=== PATIENT | female | born 1935 | race Caucasian/White ===

== ENCOUNTER 2016-06-14 04:31 | Emergency (ER) | payer MEDICARE, OTHER ==
[~2016-06-14 04:31] MED LIST: ASA5GR PO; COREG3 PO; COZ25 PO; GOODY'S EX-STR1 EAC1 PO; HARD NAILS PO; HCTZ25B PO; HYDROCHLOROT25 MG PO; IBU800 PO; LEVAQUIN750 MG PO; LEVOTHYROXIN100 MCG PO; LEVOTHYROXIN88 MCG PO; LIPITOR80 MG PO; SPIRO25 PO; ZANTAC 150 PO; ZANTAC150 MG PO
[2016-06-14 04:34] LABS: BASOPHILS 0.2 %; BASOPHILS ABSOLUTE 0.01 10/3/uL (0.0-0.16); EOSINOPHILS ABSOLUTE 0.06 10/3/uL (0.0-0.53); HEMATOCRIT 34.2 % (36.0-48.0); HEMOGLOBIN 11.1 g/dL (12.0-16.0); IMMATURE GRANULOCYTES 0.2 %; IMMATURE GRANULOCYTES ABSOLUTE 0.01 10/3/uL (0.0-0.11); LYMPHOCYTES 12.6 %; LYMPHOCYTES ABSOLUTE 0.79 10/3/uL (0.67-4.30); MEAN CORPUS HGB CONC 32.5 g/dL (32.0-36.0); MEAN CORPUSCULAR HEMOGLOB 29.9 pg (26.0-34.0); MEAN CORPUSCULAR VOLUME 92.2 fL (80-100); MEAN PLATELET VOLUME 10.6 fL (9.2-13.0); MONOCYTES 6.4 %; NEUTROPHILS 79.6 %; NEUTROPHILS ABSOLUTE 5.01 10/3/uL (2.02-8.40); RBC DISTRIBUTION WIDTH 14.9 % (12.0-16.0); RED CELL COUNT 3.71 10/6/uL (4.0-5.6); WHITE BLOOD CELLS 6.3 10/3/uL (4.5-10.5)
[2016-06-14 04:36] LABS: ER CBC TAT 0 Hrs 05 MinsNP; MANUAL DIFF NO %; PLATELET COUNT 151 10/3/uL (150-400)
[2016-06-14 04:41] LABS: INTERNATIONAL NORMAL RATI 1.2 UNITS (-); PARTIAL THROMBO TIME 24.5 SEC (22.5-37.2); PROTIME (NOT ORD) 14.6 SEC (12.0-14.5)
[2016-06-14 05:01] LABS: CALCIUM, SERUM 8.3 MG/DL (8.5-10.4); CHLORIDE, SERUM 112 MMOL/L (96-112); CO2 (CARBON DIOXIDE) 27 MMOL/L (24-34); CREATININE 1.06 MG/DL (0.55-1.02); GFR AFRICAN AMERICAN 57 ML/MIN (>=60); GFR NON AFRICAN AMERICAN 50 ML/MIN (>=60); POTASSIUM, SERUM 3.8 MMOL/L (3.5-5.3); SODIUM, SERUM 146 MMOL/L (135-148); TROPONIN I 0.04 NG/ML (<0.05)
[2016-06-14 05:05] LABS: BUN (BLOOD UREA NITROGEN) 24 MG/DL (6-23); CHEST PAIN PROFILE TAT 0 Hrs 32 Mins; GLUCOSE, SERUM 135 MG/DL (60-99)
== END 2016-06-14 05:45 | disposition home or self-care (01) ==
LOC: ER 04:31
PROVIDERS: Nurse Practitioner Acute Care
DX: E87.70 Fluid overload, unspecified (principal); I11.0 Hypertensive heart disease with heart failure; I50.9 Heart failure, unspecified; I42.9 Cardiomyopathy, unspecified; Z87.891 Personal history of nicotine dependence; Z90.710 Acquired absence of both cervix and uterus; Z79.82 Long term (current) use of aspirin; Z79.899 Other long term (current) drug therapy
CPT/HCPCS: 71010; 80048; 83735; 83880; 84484; 85025; 85610; 85730; 93005; 96374; 99285; J1940